=== PATIENT | female | born 1985 | race African-American/Black ===

== ENCOUNTER 2024-12-24 03:48 | Observation (INO) | payer BC, SELFPAY ==
[2024-12-24] VITALS (13 sets, daily range): BP systolic 97–122; BP diastolic 56–82; PULSE 65–105; RESP 10–21; TEMP 36–36.6; O2SAT 95–100; BMI 22.0
--- NOTE | ~2024-12-24 | CT_ITS ---
CT HEAD NON-CONTRAST Clinical History: seizure Comparison: None Technique: Unenhanced axial images skull base to vertex Coronal, sagittal reformats CT images acquired with automatic exposure control for dose reduction DLP: 832 mGy-cm Findings: Motion artifact could obscure abnormality. Sulci, ventricles: Unremarkable. No intracerebral hemorrhage. No evidence acute territorial infarct. No mass effect, midline shift. Bony calvarium intact. Visualized paranasal sinuses: Clear. Mastoid air cells: Clear. IMPRESSION: 1. No acute intracranial findings. Reviewed, dictated and finalized at location R. [employer]
--- NOTE | ~2024-12-24 | XR_ITS ---
Examination: XR chest 1V Clinical History: seizure Comparison: None Technique: Portable AP Findings: Heart size normal. Lungs clear. No acute bony abnormality. IMPRESSION: 1. No acute cardiopulmonary findings given portable technique. Reviewed, dictated and finalized at location R. AR WORKER
--- NOTE | ~2024-12-24 | MR_ITS ---
EXAMINATION: MR brain/brain stem wo/w con DATE: 12/24/2024 16:24 INDICATION: New onset seizure. TECHNIQUE: Magnetic resonance imaging (MRI) of the brain and brainstem was performed without and with 10 mL MultiHance intravenous contrast. COMPARISON: Head CT 12/24/2024 FINDINGS: The cerebellar tonsils extend 7 mm inferior to foramen magnum, consistent with Chiari 1 malformation. The hippocampi are normal and symmetric. There is no intracranial hemorrhage, acute infarction, or abnormal intracranial mass lesion. The ventricles are normal in size. The orbits are normal. There is mild mucosal thickening in the paranasal sinuses. The mastoid air cells are normal. IMPRESSION: 1. Chiari 1 malformation. Reviewed, dictated and finalized at location E. ING UNIT MECHANIC IMPRESSION: 1. Chiari 1 malformation.
--- NOTE | 2024-12-24 03:57 | ECG_ITS ---
Test Date: 2024-12-24 04:03:39 Measurements Intervals [place] Rate: 104 P: -17 MS: 126 QRS: 2 QRSD: 74 T: 8 QT: 344 QTc: 454 Interpretive Statements SINUS TACHYCARDIA Electronically Signed On 12-24-2024 09:59:56 TELEPHONE MECHANIC by Vamsi Bashir D.O
[2024-12-24 04:51] LABS: Hematocrit 37.5 % (37.0-47.0); Hemoglobin 12.6 g/dL (12.0-15.0); Immature Granulocyte Percent A 0.5 % (0-0.5); Lymphocytes Absolute Auto 1.96 K/mm3 (0.9-3.2); Mean Corpuscular HGB Conc 33.6 g/dl (32-36); Mean Corpuscular Hemoglobin 29.4 pg (26-34); Mean Corpuscular Volume 87.6 fl (80-100); Nucleated Red Blood Cells Absolute Auto 0.000 K/mm3 (0.0-0.012); Nucleated Red Blood Cells Perc 0.0 % (0.0-0.2); Platelet Count Result 204 k/mm3 (150-375); Red Blood Count 4.28 M/mm3 (4.2-5.4); White Blood Count 6.2 K/mm3 (4.5-10.0)
[2024-12-24 05:06] LABS: Alanine Aminotransferase 26 U/L (6-35); Albumin Level 4.2 g/dL (3.5-5.1); Alkaline Phosphatase 65 U/L (38-126); Anion Gap 8 mmol/L (4-12); Aspartate Amino Transferase 34 U/L (14-36); Bilirubin,Total 0.4 mg/dL (0.2-1.3); Blood Urea Nitrogen 18 mg/dL (7-17); Calcium 9.2 mg/dL (8.4-10.2); Carbon Dioxide 23 mmol/L (22-30); Chloride 105 mmol/L (98-107); Estimated CRCL calculation 77 ml/min; Estimated Glomerular Filt Rate > 60; Glucose 96 mg/dL (65-110); Lipase 76 U/L (23-300); Magnesium 2.1 mg/dL (1.6-2.3); Potassium 3.9 mmol/L (3.4-5.0); Sodium 136 mmol/L (137-145); Total Protein 7.3 g/dL (6.3-8.2)
--- NOTE | 2024-12-24 05:08 | PC.NURSE ---
Pt states she is unable to provide urine sample at this time.
[2024-12-24 05:36] LABS: Thyroid Stimulating Hormone Reflex 1.260 uIU/mL (0.465-4.68)
--- NOTE | 2024-12-24 06:06 | ED.GENADULT ---
HPI - General Adult General Chief complaint: Seizure Stated complaint: FALL IN BATHROOM, SZ- LIKE ACTIVITY Time Seen by Provider: 12/24/24 03:54 History of Present Illness HPI narrative: This is a 39-year-old female presenting for a first-time seizure. Patient says she had several drinks done [place] last night. She then got up to use the restroom. She does not remember anything after that except showing up in the emergency room. Per her boyfriend she got up to use the restroom to vomit. He then heard a thud and when he went in there she was having a generalized tonic clonic seizure and foaming at the mouth. The last approximately 35 seconds before resolving. She was then postictal. EMS was called and she was brought to the hospital. The patient's only complaint is pain to her tongue where she bit herself. No incontinence. She denies use of frequent alcohol and does not typically drink. She does use marijuana frequently. No other symptoms. Exam Narrative: APPEARANCE: No apparent distress. Head: tongue biting EYES: EOMI, NOSE: Atraumatic NECK: Trachea midline RESPIRATORY: No increased rate of breathing Clear to auscultation CARDIOVASCULAR: RRR, no peripheral edema ABDOMINAL: Non-distended soft nontender MUSCULOSKELETAl: No obvious deformities NEURO: Alert. Cranial nerves 2-12 grossly intact. Sensation light touch, motor function cerebellar function intact for 4 extremities. Gait exam was normal. SKIN:: Warm, dry. Normal color PSYCHIATRIC: Normal affect Course Vital Signs Vital signs: Vital Signs Temperature 98 F 12/24/24 03:49 Pulse Rate 105 H 12/24/24 03:49 Respiratory Rate 21 H 12/24/24 03:49 Blood Pressure 122/73 12/24/24 03:49 Pulse Oximetry 100 12/24/24 03:49 Oxygen Delivery Room Air 12/24/24 03:49 Temperature 98 F 12/24/24 03:49 Pulse Rate 70 12/24/24 05:09 Respiratory Rate 19 12/24/24 05:09 Blood Pressure 119/70 12/24/24 05:09 Pulse Oximetry 100 12/24/24 05:09 Oxygen Delivery Room Air 12/24/24 04:01 Medical Decision Making MDM Narrative Medical decision making narrative: -Course: 39-year-old female presenting with a first-time seizure. Physical exam shows bites to both sides of her tongue. Neurologic exam is normal. Laboratory studies within normal limits. CT brain without any acute findings. Neurology was consulted. Patient be admitted hospital for first-time seizure. UA and UDS were pending at time of admission and will be followed by the accepting service. Vital Signs Vital Signs: Vital Signs Temperature 98 F 12/24/24 03:49 Pulse Rate 105 H 12/24/24 03:49 Respiratory Rate 21 H 12/24/24 03:49 Blood Pressure 122/73 12/24/24 03:49 Pulse Oximetry 100 12/24/24 03:49 Oxygen Delivery Room Air 12/24/24 03:49 Temperature 98 F 12/24/24 03:49 Pulse Rate 70 12/24/24 05:09 Respiratory Rate 19 12/24/24 05:09 Blood Pressure 119/70 12/24/24 05:09 Pulse Oximetry 100 12/24/24 05:09 Oxygen Delivery Room Air 12/24/24 04:01 Lab Data 12/24/24 04:44 12/24/24 04:44 Labs: Lab Results 12/24/24 Range/Units 04:44 WBC 6.2 (4.5-10.0) K/mm3 RBC 4.28 (4.2-5.4) M/mm3 Hgb 12.6 (12.0-15.0) g/dL Hct 37.5 (37.0-47.0) % MCV 87.6 (80-100) fl MCH 29.4 (26-34) pg MCHC 33.6 (32-36) g/dl RDW 12.9 (11.5-14.5) % Plt Count 204 (150-375) k/mm3 MPV 9.6 (7.4-10.4) fl Immature Gran % (Auto) 0.5 (0-0.5) % Neut % (Auto) 58.9 (45.5-73.1) % Lymph % (Auto) 31.8 (18.3-44.2) % Reynolds % (Auto) 7.0 (2.6-8.5) % Eos % (Auto) 1.3 (0-4.4) % Baso % (Auto) 0.5 (0.2-1.2) % Lymph # (Auto) 1.96 (0.9-3.2) K/mm3 Reynolds # (Auto) 0.4 (0.1-0.6) K/mm3 Eos # (Auto) 0.1 (0-0.3) K/mm3 Baso # (Auto) 0.0 (0.0-0.1) K/mm3 Abs Immat Gran (auto) 0.03 (0.00-0.031) K/mm3 Absolute Neuts (auto) 3.6 (1.3-6.7) K/mm3 Absolute Nucleated RBC 0.000 (0.0-0.012) K/mm3 Nucleated RBC % 0.0 (0.0-0.2) % Sodium 136 L (137-145) mmol/L Potassium 3.9 (3.4-5.0) mmol/L Chloride 105 (98-107) mmol/L Carbon Dioxide 23 (22-30) mmol/L Anion Gap 8 (4-12) mmol/L BUN 18 H (7-17) mg/dL Creatinine 0.73 (0.7-1.0) mg/dL Estim Creat Clear Calc 77 ml/min Estimated GFR > 60 (59 - ) Glucose 96 (65-110) mg/dL Lactic Acid 2.0 (0.7-2.0) mmol/L Calcium 9.2 (8.4-10.2) mg/dL Magnesium 2.1 (1.6-2.3) mg/dL Total Bilirubin 0.4 (0.2-1.3) mg/dL AST 34 (14-36) U/L ALT 26 (6-35) U/L Alkaline Phosphatase 65 (38-126) U/L Total Protein 7.3 (6.3-8.2) g/dL Albumin 4.2 (3.5-5.1) g/dL Lipase 76 (23-300) U/L TSH (Reflex) 1.260 (0.465-4.68) uIU/mL Ethyl Alcohol < 10 (<10) mg/dL Discharge Plan Discharge Clinical Impression: Seizure Patient Disposition: Still a Patient Condition: Stable Patient Language: Tanzanian Follow-up/Referrals: Alexey Moore MD [Primary Care Provider, [facility]]
[2024-12-24] MEDS: levETIRAcetam 1500MG/NACL100ML 1,500 MG/100 ML BAG 400 MG IVPB (06:30)
[2024-12-24 06:51] LABS: Add Urine Microscopic? YES; Appearance Urine Cloudy (Clear); Glucose Urine UA Negative (Negative); Leukocyte Esterase Ur Trace LEU/UL (Negative); Nitrate Urine Negative (Negative); Non Pathogenic Casts 0-2; Specific Grav Ur 1.026 (1.001-1.035)
[2024-12-24] MEDS: LACTATED RINGERS 1,000 ML 125 ML IV CONT ×2 (06:54→15:07)
[2024-12-24 07:06] LABS: Cannabinoid Screen Urine Positive (Negative)
--- NOTE | 2024-12-24 07:15 | PC.NURSE ---
Assumed care of pt. Pt c/o jaw pain and slight headache. Updated on admission.
--- NOTE | 2024-12-24 10:58 | P.HP_ITS ---
H&P: HPI History of Present Illness Date/Time: 12/24/24 10:58 Chief Complaint: seizure Narrative: Patient is a 39 year old female with PMH of tobacco abuse. Patient presented to the ER with complaints of a witnessed seizure. Patient had a few drinks of alcohol yesterday evening and reports she got up to go to the bathroom because she felt she had to vomit and then she doesn't remember anything again until she was in the emergency room. Per the patient's boyfriend she got up to use the restroom and he then heard a loud thud and went to her and she was having a generalized tonic clonic seizure and foaming at the mouth. He reported that it lasted approximately 35 seconds before resolving and was then postictal. Patient bit her tongue during the seizure. Patient has bite holman present on both sides of the tongue. Patient did not lose bowel or bladder function. Patient reports she does not drink alcohol regularly and only has a few drinks once in awhile. Patient reports she uses tobacco and marijuana regularly, denies any other illicit substances. In the ER the patients labs were unremarkable and alcohol was <10. CT head was negative for acute findings. UDS positive for cannabinoids. Patient was given 1500 mg IV keppra. Neurology was consulted. Patient was admitted for further evaluation and treatment. Review of Systems Review of Systems: All systems reviewed & are unremarkable except as noted in HPI and below PMFSH Social History Social History Smoking status: Current every day smoker Tobacco type: e-cigarettes/vaping Alcohol intake: never Substance use: current Substance use type: marijuana Lack of Transportation: No Lack of Food: Sometimes True Current Housing: I Have Housing Concerned About Future Housing: No Difficulty Paying Gas/Electric Bills: No Difficulty Paying for Meds: No Currently Unemployed: No Education: High School Diploma/GED Difficulty w/ Childcare or Family Care: No Spiritual care concerns: No Meds Home Medications and Allergies Home Medications ?Medication ?Instructions ?Recorded ?Confirmed ?Type No Home Medications 12/24/24 12/24/24 H istory Allergies Allergy/AdvReac Type Severity Reaction Status Date / Time No Known Allergies Allergy Verified 12/24/24 11:25 Vital Signs Vital Signs - 24 hr 12/24/24 03:49 12/24/24 04:01 12/24/24 05:09 Temperature 98 F Pulse Rate 105 H 70 Respiratory Rate 21 H 19 Blood Pressure 122/73 119/70 Pulse Oximetry 100 100 100 Oxygen Delivery Room Air Room Air 12/24/24 06:31 12/24/24 07:39 12/24/24 10:28 Temperature Pulse Rate 81 65 65 Respiratory Rate 10 L 20 18 Blood Pressure 116/82 104/58 L Pulse Oximetry 100 100 100 Oxygen Delivery Exam Const: General: comfortable and no acute distress HENMT: Face/Nose/Sinus: Normal nares present Mouth: Yes moist mucous membranes Other: bite holman to both sides of tongue Eyes: General: appearance normal, both eyes and all related structures Sclera: sclerae normal Neck: Neck: supple Resp: Effort & Inspection: normal respiratory effort Auscultation: clear to auscultation bilaterally Cardio: Rate: regular rate Rhythm: regular rhythm GI: GI Palp: Yes Soft to palpation Auscultation: normal bowel sounds Skin: General skin exam: normal color and no rashes or lesions noted Neuro: General: gait normal Speech: normal speech Motor exam (neuro): 5/5 motor strength present throughout Sensory Exam: normal sensation Extrem: General: normal to inspection Psych: Mental Status: mental status grossly normal Affect: normal affect H&P: Results Labs Labs: Short CBC 12/24/24 Range/Units 04:44 WBC 6.2 (4.5-10.0) K/mm3 Hgb 12.6 (12.0-15.0) g/dL Hct 37.5 (37.0-47.0) % Plt Count 204 (150-375) k/mm3 [facility] 12/24/24 04:44 Sodium 136 L Potassium 3.9 Chloride 105 Carbon Dioxide 23 BUN 18 H Creatinine 0.73 Glucose 96 Calcium 9.2 Liver Function 12/24/24 Range/Units 04:44 Total Bilirubin 0.4 (0.2-1.3) mg/dL AST 34 (14-36) U/L ALT 26 (6-35) U/L Alkaline Phosphatase 65 (38-126) U/L Albumin 4.2 (3.5-5.1) g/dL Urine 12/24/24 Range/Units 06:30 Urine Color Yellow (Yellow) Urine Appearance Cloudy H (Clear) Urine pH 5.5 (5.0-9.0) Ur Specific [place] 1.026 (1.001-1.035) Urine Protein Trace (Negative) mg/dL Urine Glucose (UA) Negative (Negative) mg/dL Imaging Chest x-ray: Radiologist's impression: Ordering Physician: Anhtony Plunkett MD Date of Service: 12/24/24 Procedure(s): XR chest 1V Accession Number(s): [id number] cc: Alexey Moore MD; Anthony Plunkett MD~ Examination: XR chest 1V Clinical History: seizure Comparison: None Technique: Portable AP Findings: Heart size normal. Lungs clear. No acute bony abnormality. IMPRESSION: 1. No acute cardiopulmonary findings given portable technique. Reviewed, dictated and finalized at location R. CEMENTER CT scan - head: Radiologist's impression: Ordering Physician: Anthony Plunkett MD Date of Service: 12/24/24 Procedure(s): CT brain wo con Accession Number(s): [id number] cc: Alexey Moore MD; Anthony Plunkett MD~ CT HEAD NON-CONTRAST Clinical History: seizure Comparison: None Technique: Unenhanced axial images skull base to vertex Coronal, sagittal reformats CT images acquired with automatic exposure control for dose reduction DLP: 832 mGy-cm Findings: Motion artifact could obscure abnormality. Sulci, ventricles: Unremarkable. No intracerebral hemorrhage. No evidence acute territorial infarct. No mass effect, midline shift. Bony calvarium intact. Visualized paranasal sinuses: Clear. Mastoid air cells: Clear. IMPRESSION: 1. No acute intracranial findings. Reviewed, dictated and finalized at location R. CEMENTER Assessment and Plan Assessment and plan (1) Seizure: Code(s): R56.9 - Unspecified convulsions Status: Acute Assessment and Plan: per family patient had a witnessed generalized tonic clonic seizure with foaming at the mouth followed by a postictal period the patient does not remembers getting into the bathroom and then being in the ER per family the seizure lasted approximately 35 seconds patient bit both sides of her tongue, no bladder incontinence patient does report that a few weeks ago she woke up in the morning and found that her tongue was very sore and she must have bit it in her sleep, she said she did not seek any medical attention UDS positive for cannabinoids alcohol level <10 other labs unremarkable s/p IV Keppra 1500 mg in the ER s/p head CT without acute findings Neurology consulted Seizure precautions check EEG check brain MRI w&wo (2) Injury of tongue: Code(s): S09.93XA - Unspecified injury of face, initial encounter Status: Acute Assessment and Plan: patient bit her tongue on both sides during seizure patient with difficulty eating due to pain add magic mouthwash scheduled tylenol PRN Quality VTE Prophylaxis VTE prophylaxis: mechanical ordered
--- NOTE | 2024-12-24 11:10 | PC.NURSE ---
This patient, Ivania Lyons, was admitted to [facility] Surg Room 328-01. Patient/family oriented to hospital policies and general routines including ID bracelet, bed and alarms, visiting hours, pain management, procedures, bathroom and other care routines, personal items, smoking policy, room service/diet, and visiting hours. Information on how to activate the Rapid Response Team has been discussed. Patient/Family are encouraged to report perceived risks to care and to ask questions if they do not understand what they are told or what they should do.
[2024-12-24] MEDS: ACETAMINOPHEN 500 MG TABLET 1000 MG PO ×2 (11:38→20:10)
[2024-12-24] MEDS: LIDOCAINE 2% VISC SOLN 30 ML, ALUMINUM/MAGNESIUM/SIMETH SUSP 30 ML, diphenhydrAMINE HCl... PO ×3 (12:40→20:17)
--- NOTE | 2024-12-24 14:30 | PCRCNOTE ---
smoking cessation packet given to patient.
[2024-12-24] MEDS: LORazepam (*CRX) 1 MG TABLET PO (15:17)
[2024-12-25] VITALS (8 sets, daily range): BP systolic 94–119; BP diastolic 51–71; PULSE 61–76; RESP 16–18; TEMP 36.1–36.6; O2SAT 90–100; BMI 22.0
[2024-12-25] MEDS: LACTATED RINGERS 1,000 ML 125 ML IV CONT ×2 (01:25→09:09)
[2024-12-25] MEDS: LIDOCAINE 2% VISC SOLN 30 ML, ALUMINUM/MAGNESIUM/SIMETH SUSP 30 ML, diphenhydrAMINE HCl... PO ×3 (04:36→13:37)
[2024-12-25 05:52] LABS: Hematocrit 33.3 % (37.0-47.0); Hemoglobin 10.9 g/dL (12.0-15.0); Immature Granulocyte Percent A 0.3 % (0-0.5); Lymphocytes Absolute Auto 2.52 K/mm3 (0.9-3.2); Mean Corpuscular HGB Conc 32.7 g/dl (32-36); Mean Corpuscular Hemoglobin 29.1 pg (26-34); Mean Corpuscular Volume 88.8 fl (80-100); Nucleated Red Blood Cells Absolute Auto 0.000 K/mm3 (0.0-0.012); Nucleated Red Blood Cells Perc 0.0 % (0.0-0.2); Platelet Count Result 184 k/mm3 (150-375); Red Blood Count 3.75 M/mm3 (4.2-5.4); White Blood Count 6.3 K/mm3 (4.5-10.0)
[2024-12-25 06:07] LABS: Alanine Aminotransferase 17 U/L (6-35); Albumin Level 3.2 g/dL (3.5-5.1); Alkaline Phosphatase 50 U/L (38-126); Anion Gap 4 mmol/L (4-12); Aspartate Amino Transferase 23 U/L (14-36); Bilirubin,Total 0.6 mg/dL (0.2-1.3); Blood Urea Nitrogen 8 mg/dL (7-17); Calcium 8.5 mg/dL (8.4-10.2); Carbon Dioxide 26 mmol/L (22-30); Chloride 105 mmol/L (98-107); Estimated CRCL calculation 76 ml/min; Estimated Glomerular Filt Rate > 60; Glucose 79 mg/dL (65-110); Potassium 3.3 mmol/L (3.4-5.0); Sodium 135 mmol/L (137-145); Total Protein 5.7 g/dL (6.3-8.2)
--- NOTE | 2024-12-25 12:27 | P.CONNEU_ITS ---
Assessment and Plan Assessment and plan (1) Seizure disorder: Code(s): G40.909 - Epilepsy, unspecified, not intractable, without status epilepticus Status: Acute Plan The patient had a spell 2 weeks ago in which she woke up with the tongue having been bitten. Not follow the bed. This current spell followed by aggressive behavior tongue biting suggestive of seizure episode. MRI of the brain shows an Arnold-Chiari malformation she does suffer from headache on a daily basis. She has been taking ibuprofen. There is a question regarding alcohol drinking with the patient maintains that she does not have any pattern of chronic alcoholism or binge drinking. Patient require follow-up from the point of view of seizures and I have given her my phone number. She should not drive for 6 months however she can work so long as somebody can drop her pick her up or she can use public transport. I shall be glad to see her in my office in 2 months time. Consult date: 12/25/24 HPI: Ivania Lyons is a 39 year old right-handed Afro-Israeli female presented to the hospital seizure-like activity. Patient apparently has a drink and she vomited and then went to bathroom and then she collapsed. Her boyfriend was around. Above heard a loud 3rd and patient having a generalized tonic-clonic seizure and foaming from the mouth she bit her tongue on the right side. Spell lasted for 35 seconds or so. She was postictal and combative and fighting. She does not recall happened in the ambulance but she does note she was brought into the hospital by ambulance. By the time she got to room she was coming around to understand next better. CT scan brain was performed which was normal. Alcohol level was less than 10. She states that she may sometimes drink but she does not drink heavily. furthermore she gives a history that she has had this spell about 2 weeks ago in which she woke up in the morning with the tongue being bitten on the right side. There is no prior history of head trauma or any recent febrile illness. She denies any history of drug abuse. Her mother had stroke. Patient also complains of headache on a daily basis but she attributes this to her current job that she had for Last 4 years or so. 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 Currently she denies any symptoms as feeling well. She has been loaded with Keppra and now is on Keppra 750 mg twice a day. Review of Systems 2 Review of Systems: All systems reviewed & are unremarkable except as noted in HPI and below PMFSH Past Medical History Medical History (Updated 12/25/24 @ 12:32 by Lucian Fuentes MD) Seizure disorder Social History Social History Smoking status: Current every day smoker Tobacco type: e-cigarettes/vaping Alcohol intake: never Substance use: current Substance use type: marijuana Lack of Transportation: No Lack of Food: Sometimes True Current Housing: I Have Housing Concerned About Future Housing: No Difficulty Paying Gas/Electric Bills: No Difficulty Paying for Meds: No Currently Unemployed: No Education: High School Diploma/GED Difficulty w/ Childcare or Family Care: No Spiritual care concerns: No Meds Home Medications and Allergies Home Medications ?Medication ?Instructions ?Recorded ?Confirmed ?Type No Home Medications 12/24/24 12/24/24 H istory Allergies Allergy/AdvReac Type Severity Reaction Status Date / Time No Known Allergies Allergy Verified 12/24/24 11:25 Vital Signs Vital Signs - 24 hr 12/24/24 14:00 12/24/24 17:23 12/24/24 18:20 Temperature 96.8 F L 97.5 F L Pulse Rate 75 80 76 Respiratory Rate 16 15 Blood Pressure 110/63 109/56 L Pulse Oximetry 99 100 Oxygen Delivery 12/24/24 20:00 12/24/24 20:00 12/24/24 21:26 Temperature 97.0 F L Pulse Rate 72 82 Respiratory Rate 14 Blood Pressure 100/56 L Pulse Oximetry 95 Oxygen Delivery Room Air 12/25/24 00:00 12/25/24 00:33 12/25/24 04:00 Temperature 97.0 F L Pulse Rate 61 71 61 Respiratory Rate 18 Blood Pressure 96/58 L Pulse Oximetry 90 Oxygen Delivery 12/25/24 04:45 12/25/24 08:00 12/25/24 11:54 Temperature 97.3 F L 97.6 F 97.7 F Pulse Rate 63 64 76 Respiratory Rate 18 18 16 Blood Pressure 95/54 L 94/51 L 110/71 Pulse Oximetry 96 100 97 Oxygen Delivery Exam 2 Const: General: cooperative, healthy appearing and comfortable HENMT: Head: atraumatic Other: Right side of the tongue has been bitten. No active bleeding or trauma around the head and neck noted Eyes: Alignment and Position: alignment normal and position normal EOM: E OMs intact bilaterally Neck: Neck: normal visual inspection and supple Resp: Effort & Inspection: normal respiratory effort Cardio: Heart sounds: S1 normal heart sound present and S2 normal heart sound present Skin: General skin exam: normal color Neuro: Cranial nerves: Yes CN's II-XII intact bilaterally, Yes facial symmetry and Yes Midline tongue present Cognition (Neuro): normal cognition Speech: normal speech Motor exam (neuro): 5/5 motor strength present throughout and Normal motor muscle tone present throughout Sensory Exam: normal sensation Coordination: [id number] test normal and Normal rapid alternating movements of the distal upper extremity present (Neuro) Extrem: General: normal to inspection Psych: Appearance: well kempt Mental Status: mental status grossly normal Speech and movement: Normal speech and movement present Affect: normal affect Thought process: Normal thought process present Thought content: Y es Normal thought content present Insight: Good insight present (Psych) J udgement: Good judgement present (Psych) Results Labs 12/25/24 05:32 12/25/24 05:32 Labs: Short CBC 12/25/24 Range/Units 05:32 WBC 6.3 (4.5-10.0) K/mm3 Hgb 10.9 L (12.0-15.0) g/dL Hct 33.3 L (37.0-47.0) % Plt Count 184 (150-375) k/mm3 BMP 12/25/24 05:32 Sodium 135 L Potassium 3.3 L Chloride 105 Carbon Dioxide 26 BUN 8 D Creatinine 0.74 Glucose 79 Calcium 8.5 Liver Function 12/25/24 Range/Units 05:32 Total Bilirubin 0.6 (0.2-1.3) mg/dL AST 23 (14-36) U/L ALT 17 (6-35) U/L Alkaline Phosphatase 50 (38-126) U/L Albumin 3.2 L (3.5-5.1) g/dL Imaging Attestation: I personally reviewed and interpreted this imaging study as follows: ( MRI of the brain) My impression: normal findings. Radiologist's impression: Arnold-Chiari malformation type 1
[2024-12-25] MEDS: POTASSIUM CHLORIDE 20 MEQ ER TABLET 40 MEQ PO (13:36)
--- NOTE | 2024-12-25 14:45 | PM.DS ---
DS: Admitting Diagnosis Discharge Date 12/25/2024 Admitting Diagnosis Seizure Injury of tongue DS: Discharge Diagnosis Discharge Diagnosis (1) Seizure: Code(s): R56.9 - Unspecified convulsions Status: Acute Assessment and Plan: per family patient had a witnessed generalized tonic clonic seizure with foaming at the mouth followed by a postictal period the patient does not remembers getting into the bathroom and then being in the ER per family the seizure lasted approximately 35 seconds patient bit both sides of her tongue, no bladder incontinence patient does report that a few weeks ago she woke up in the morning and found that her tongue was very sore and she must have bit it in her sleep, she said she did not seek any medical attention UDS positive for cannabinoids alcohol level <10 other labs unremarkable s/p IV Keppra 1500 mg in the ER s/p head CT without acute findings Neurology consulted Seizure precautions check EE, ordered, patient can be discharged after it is completed and will follow up with neuro after discharge for the results brain MRI w&wo - Chiari 1 Malformation increase keppra to 750 mg BID per neurology recommendations patient instructed no driving for 6 months patient will need to follow up with neurology after discharge for EEG results medication refills and management of her seizures (2) Injury of tongue: Code(s): S09.93XA - Unspecified injury of face, initial encounter Status: Acute Assessment and Plan: patient bit her tongue on both sides during seizure patient with difficulty eating due to pain magic mouthwash scheduled tylenol PRN slowly improving DS: Summary Hospital Course Reason for hospitalization: seizure Hospital Course: The patient is a 39-year-old female with a history of tobacco and marijuana use who presented after a witnessed generalized tonic-clonic seizure at home. The event was described by her boyfriend as lasting approximately 35 seconds, with tongue biting and a postictal period. There was no loss of bowel or bladder control. The patient had consumed a few alcoholic drinks the evening prior but does not report regular alcohol use. She also reported a similar episode two weeks prior, waking with tongue soreness but no witnessed seizure. On arrival, she was postictal but hemodynamically stable. She had bite holman on both sides of her tongue. Initial labs, including CBC, BMP, LFTs, and toxicology, were unremarkable except for mild hyponatremia, mild hypokalemia, and a positive urine cannabinoid screen. Alcohol level was <10. Imaging included a non-contrast head CT (no acute findings) and a chest x-ray (no acute cardiopulmonary findings). She was loaded with IV levetiracetam (Keppra) 1500 mg in the ED and admitted for further evaluation. Neurology was consulted. 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 EEG was ordered. The patient was started on levetiracetam 750 mg BID per neurology recommendations. She was counseled on seizure precautions, including no driving for 6 months. She was also advised to follow up with neurology for EEG results, medication management, and further evaluation of her seizures. For tongue injury, she was started on magic mouthwash and acetaminophen as needed for pain, with gradual improvement in oral intake. Time Spent with Patient Time attestation: Total time spent providing and/or coordinating discharge services: 35 Minutes Exam Const: General: comfortable and no acute distress HENMT: Face/Nose/Sinus: Normal nares present Mouth: Yes moist mucous membranes Other: bite holman to both sides of tongue Eyes: General: appearance normal, both eyes and all related structures Sclera: sclerae normal Neck: Neck: supple Resp: Effort & Inspection: normal respiratory effort Auscultation: clear to auscultation bilaterally Cardio: Rate: regular rate Rhythm: regular rhythm GI: Auscultation: normal bowel sounds Skin: General skin exam: normal color and no rashes or lesions noted Neuro: General: gait normal Speech: normal speech Motor exam (neuro): 5/5 motor strength present throughout Sensory Exam: normal sensation Extrem: General: normal to inspection Psych: Mental Status: mental status grossly normal Affect: normal affect DS: Data Data Completed and Pending Labs on day of discharge: Labs from last 24 hours 12/25/24 05:32 WBC 6.3 RBC 3.75 L Hgb 10.9 L Hct 33.3 L MCV 88.8 MCH 29.1 MCHC 32.7 RDW 12.9 Plt Count 184 MPV 9.9 Immature Gran % (Auto) 0.3 Neut % (Auto) 52.3 Lymph % (Auto) 40.1 [place] % (Auto) 6.0 Eos % (Auto) 1.0 Baso % (Auto) 0.3 Lymph # (Auto) 2.52 [place] # (Auto) 0.4 Eos # (Auto) 0.1 Baso # (Auto) 0.0 Abs Immat Gran (auto) 0.02 Absolute Neuts (auto) 3.3 Absolute Nucleated RBC 0.000 Nucleated RBC % 0.0 Sodium 135 L Potassium 3.3 L Chloride 105 Carbon Dioxide 26 Anion Gap 4 BUN 8 D Creatinine 0.74 Estim Creat Clear Calc 76 Estimated GFR > 60 Glucose 79 Calcium 8.5 Total Bilirubin 0.6 AST 23 ALT 17 Alkaline Phosphatase 50 Total Protein 5.7 L Albumin 3.2 L Imaging Radiologist's impression: Ordering Physician: Anthony Plunkett MD Date of Service: 12/24/24 Procedure(s): CT brain wo con Accession Number(s): [id number] cc: Alexey Moore MD; Anthony Plunkett MD~ CT HEAD NON-CONTRAST Clinical History: seizure Comparison: None Technique: Unenhanced axial images skull base to vertex Coronal, sagittal reformats CT images acquired with automatic exposure control for dose reduction DLP: 832 mGy-cm Findings: Motion artifact could obscure abnormality. Sulci, ventricles: Unremarkable. No intracerebral hemorrhage. No evidence acute territorial infarct. No mass effect, midline shift. Bony calvarium intact. Visualized paranasal sinuses: Clear. Mastoid air cells: Clear. IMPRESSION: 1. No acute intracranial findings. Reviewed, dictated and finalized at location [facility]. [facility] [employer]ING CHECK[employer] Ordering Physician: Lisa Navarro APRN Date of Service: 12/24/24 Procedure(s): MR brain/brain stem wo/w con Accession Number(s): [id number] cc: Yessica Velazco MD; Alexey Moore MD; Lisa Navarro APRN~ EXAMINATION: MR brain/brain stem wo/w con DATE: 12/24/2024 16:24 INDICATION: New onset seizure. TECHNIQUE: Magnetic resonance imaging (MRI) of the brain and brainstem was performed without and with 10 mL MultiHance intravenous contrast. COMPARISON: Head CT 12/24/2024 FINDINGS: The cerebellar tonsils extend 7 mm inferior to foramen magnum, consistent with Chiari 1 malformation. The hippocampi are normal and symmetric. There is no intracranial hemorrhage, acute infarction, or abnormal intracranial mass lesion. The ventricles are normal in size. The orbits are normal. There is mild mucosal thickening in the paranasal sinuses. The mastoid air cells are normal. IMPRESSION: 1. Chiari 1 malformation. Reviewed, dictated and finalized at location [facility]. K [employer] CHECK[employer] Discharge Plan Discharge Attending physician on discharge: Rubina Yepez Consulting providers: Luis Schroeder Discharging Clinician: Lisa Navarro Patient Disposition: Home Activity: no driving and as tolerated Diet: as tolerated Discharge Instructions: No driving for 6 months after last known seizure. Please have your PCP or neurology refill your seizure medication before it runs out. Do not miss doses of your seizure medication. Patient Instructions: Antibiotic Form, How to Stop Smoking (DC), New-Onset Seizure in Adults (DC) Patient Language: [place] Stand Alone Forms: General Discharge Information Follow-up/Referrals: Luis Schroeder MD [Physician, Neurology] Referral Note: call for an appt to see Dr. Schroeder or Dr. Wagner for a follow up to get medication refills and the results for your EEG which was done before discharge. Alexey Moore MD [Primary Care Provider, Family Practice] Referral Note: call for an appt to be seen within 1-2 weeks of discharge Discharge Medications: New levetiracetam 750 mg tablet 750 mg PO BID Qty: 60 0RF Date of admission: 12/24/24 06:12 Primary Care Provider: Alexey Moore Admitting Provider: Yessica Velazco Attending physician on admission: Yessica Velazco Condition: Stable Quality VTE Prophylaxis VTE prophylaxis: mechanical ordered
--- NOTE | 2024-12-26 09:05 | WPDNEUROLOGY ---
Neurology EEG Report General Information Date of Study: 12/25/24 TEST EEG DIAGNOSIS Witnessed seizure CONDITION OF RECORDING awake, drowsy and asleep. EEG NUMBER [id number] CLINICAL HISTORY Patient at home took a shot of hard alcohol. She stated that she then coughed and threw up which made her get up and run to the bathroom. That is the last thing she remembers. Her boyfriend heard a 3rd found the patient on the ground convulsing. He stated she had her hands clenched and her arms were in front of her tight. Patient states when she remembers coming to, he started screaming, crying, and she did not know where she was. She had bitten her tongue and lost control of her bladder. Patient stated that she was exhausted and like all the energy was drained from her body. She also had woken up from her sleep with the tongue bit prior to the episode, thought it was from the vivid dream she has been having. EEG DESCRIPTION Basic resting occipital frequency consists of low voltage 8 to 10 hertz per 2nd alpha admixed with low-voltage 15 to 18 hertz per 2nd beta activity. Hyperventilation produced normal and symmetrical buildup. And photic stimulation produced normal drive. Low-voltage beta activity seen diffusely admixed with waxing and waning intermittent low-voltage to medium voltage theta activity. Bilateral sleep activity noted with symmetrical sleep spindles. Multiple EKG artifacts also noted intermittently. Hyperventilation produced normal and symmetrical buildup. Photic stimulation produced normal drive. Non paroxysmal. Nonfocal. Non lateralizing. IMPRESSION Normal record, an EEG can be normal in the setting of the history of seizure. clinical correlation recommended.
--- NOTE | 2024-12-27 10:02 | PC.NURSE ---
During follow up discharge phone call the patient asked if it is normal for Roxana to make her drowsy and dizzy. I advised her to call her PCP with any medication questions.
== END 2024-12-25 15:45 | disposition home or self-care (01) ==
LOC: ANHED 07:28 → ANH3MEDSUR 10:33
PROVIDERS: Admitting Provider General Practice; Emergency Provider Emergency Medicine; PCP Emergency Medicine; Visit Provider Nurse Practitioner Adult Health
DX: R56.9 Unspecified convulsions (principal); S00.572A Other superficial bite of oral cavity, initial encounter; G93.5 Compression of brain; F17.290 Nicotine dependence, other tobacco product, uncomplicated; F12.90 Cannabis use, unspecified, uncomplicated
CPT/HCPCS: 36415; 70450; 70553; 71045; 80053; 80307; 81001; 82077; 83605; 83690; 83735; 84443; 85025; 93005; 95816; 96361; 96365; 99285; A9270; A9577; G0378; J1953; J7120

== ENCOUNTER 2025-02-04 09:15 | Emergency (ER) | payer BC, SELFPAY ==
--- NOTE | ~2025-02-04 | CT_ITS ---
CHEST ABDOMEN PELVIS WITH CONTRAST CLINICAL HISTORY: Ant/Post chest wall pain, RUQ pain . COMPARISON: Chest x-ray 12/24/2024 TECHNIQUE: Helical CT performed from thoracic inlet to symphysis pubis IV contrast information not listed in PACS Coronal, sagittal reformats. Multi planar MIPS CT images acquired with automatic exposure control for dose reduction DLP: 271 mGy-cm FINDINGS: CHEST- Lungs/Pleura: Clear. Thoracic Aorta: No dissection. No aneurysm. Pulmonary arteries: Normal caliber. No PE. Heart: Unremarkable. Tracheobronchial tree: Patent. Nodes: No enlarged nodes. Bones: No acute bony abnormality. Soft tissues: Unremarkable. ABDOMEN/PELVIS- Liver: Steatosis. Gallbladder: Unremarkable. Spleen: Unremarkable. Pancreas: Unremarkable. Adrenal glands: Unremarkable. Kidneys: Right kidney- No hydronephrosis. No renal stones. Tiny cyst. Left kidney- No hydronephrosis. No renal stones. Tiny cyst. Distal esophagus/stomach: Apparent gastric antral wall thickening but under distended. Small bowel loops: Normal caliber and wall thickness. Colon: Normal caliber and wall thickness. Normal RLQ appendix. Nodes: No enlarged nodes. Peritoneum: No ascites. No free air. Urinary bladder: Unremarkable. Uterus: Unremarkable. Adnexa: No masses. Left corpus luteal cyst. Small pelvic free fluid. Bones: No acute bony abnormality. Soft tissues: Unremarkable. Aorta: No aneurysm or dissection. IVC: Unremarkable. Main portal vein/SMV/splenic vein: Patent. IMPRESSION: CHEST- 1. No acute findings. ABDOMEN/PELVIS- 1. No acute findings. Reviewed, dictated and finalized at location R. D BAR CLERK
[2025-02-04 09:26] VITALS: BP 103/78; PULSE 79; RESP 18; TEMP 36.4; O2SAT 100
[2025-02-04 09:42] LABS: Hematocrit 39.0 % (37.0-47.0); Hemoglobin 13.4 g/dL (12.0-15.0); Immature Granulocyte Percent A 0.1 % (0-0.5); Lymphocytes Absolute Auto 2.76 K/mm3 (0.9-3.2); Mean Corpuscular HGB Conc 34.4 g/dl (32-36); Mean Corpuscular Hemoglobin 29.3 pg (26-34); Mean Corpuscular Volume 85.3 fl (80-100); Nucleated Red Blood Cells Absolute Auto 0.000 K/mm3 (0.0-0.012); Nucleated Red Blood Cells Perc 0.0 % (0.0-0.2); Platelet Count Result 193 k/mm3 (150-375); Red Blood Count 4.57 M/mm3 (4.2-5.4); White Blood Count 7.2 K/mm3 (4.5-10.0)
[2025-02-04 10:09] LABS: Alanine Aminotransferase 25 U/L (6-35); Albumin Level 4.3 g/dL (3.5-5.1); Alkaline Phosphatase 66 U/L (38-126); Anion Gap 8 mmol/L (4-12); Aspartate Amino Transferase 35 U/L (14-36); Bilirubin,Total 0.3 mg/dL (0.2-1.3); Blood Urea Nitrogen 8 mg/dL (7-17); Calcium 9.7 mg/dL (8.4-10.2); Carbon Dioxide 19 mmol/L (22-30); Chloride 109 mmol/L (98-107); Estimated CRCL calculation 65 ml/min; Estimated Glomerular Filt Rate > 60; Glucose 93 mg/dL (65-110); Lipase 48 U/L (23-300); Potassium 4.4 mmol/L (3.4-5.0); Sodium 136 mmol/L (137-145); Total Protein 7.3 g/dL (6.3-8.2)
--- NOTE | 2025-02-04 10:24 | PC.NURSE ---
called to room by registration stating the family member states pt is having a seizure. Dr Damon and I went to room to find patient lying supine eyes closed. Dr Damon rubbed middle of chest and pt became awake right away. NO post-ictal state. Family member asked if he should do that when this situation happens again - Told him yes - patient stated that she is fine.
[2025-02-04] MEDS: KETOROLAC 30 MG/ML VIAL (*BKC) IV PUSH (10:42)
[2025-02-04] MEDS: HYDROmorphone HCL INJ (*CRX) 1 MG/ML SYR IV PUSH (10:44)
[2025-02-04] MEDS: SODIUM CHLORIDE 0.9% IV 1,000 ML 999 ML IV CONT (10:45)
[2025-02-04 10:50] VITALS: BP 114/63; PULSE 65; RESP 13; O2SAT 99
--- NOTE | 2025-02-04 10:55 | ED_ITS ---
HPI - General Adult General Chief complaint: Abdominal Pain Stated complaint: right upper abd pain Time Seen by Provider: 02/04/25 10:03 History of Present Illness HPI narrative: Patient is a 40-year-old female who presents ER with pain to her chest wall and upper abdomen. She was stretching at 3:00 a.m. and felt a pop towards her anterior chest wall. She has started having spasming moving into her upper abdomen. She cannot move without crying. No nausea or vomiting. No diarrhea. No urinary frequency urgency or dysuria. Not found nearly a factors other than lying still holding her upper abdomen. Related Data Allergies Allergy/AdvReac Type Severity Reaction Status Date / Time No Known Allergies Allergy Verified 02/04/25 09:28 Review of Systems 2 Review of Systems: All systems reviewed & are unremarkable except as noted in HPI and below Constitutional: Constitutional: Reports no additional constitutional complaints ENT: Reports system reviewed and no additional complaints, except as documented Cardiovascular: Cardiovascular: Reports no additional cardiovascular complaints Respiratory: Respiratory: Reports no additional respiratory complaints Gastrointestinal: Gastrointestinal: Reports no additional gastrointestinal complaints Musculoskeletal: Musculoskeletal: Reports no additional musculoskeletal complaints [facility] Past Medical History Medical History (Updated 02/04/25 @ 12:09 by Gigi Damon MD) Seizure disorder Social History Social History Smoking status: Current every day smoker Tobacco type: e-cigarettes/vaping Alcohol intake: never Substance use: current Substance use type: marijuana Lack of Transportation: No Lack of Food: Sometimes True Current Housing: I Have Housing Concerned About Future Housing: No Difficulty Paying Gas/Electric Bills: No Difficulty Paying for Meds: No Currently Unemployed: No Education: High School Diploma/GED Difficulty w/ Childcare or Family Care: No Spiritual care concerns: No Exam 2 Narrative: GENERAL: Tearful-appearing, well-nourished, and in mild distress. HEAD: Normocephalic, atraumatic. EYES: PERRL and EOMI. ENT: Mucous membranes moist. CHEST: Clear to auscultation. No respiratory distress. Patient guards and rides with palpation to the the lower anterior right chest wall as well as lateral chest wall and posterior chest wall. HEART: Regular rate and rhythm. Normal peripheral pulses. ABDOMEN: Soft, mild tenderness on upper quadrant with voluntary guarding, nondistended, normal active bowel sounds. EXTREMITIES: Normal range of motion. No edema. SKIN: Warm, dry, no rash. NEURO: Alert and oriented x3. Course Course Emergency Course: Pain improved with Dilaudid and Toradol. Hydrated. CT without any acute injury. Appropriate for discharge home. Vital Signs Vital signs: Vital Signs Temperature 97.5 F L 02/04/25 09:26 Pulse Rate 79 02/04/25 09:26 Respiratory Rate 18 02/04/25 09:26 Blood Pressure 103/78 02/04/25 09:26 Pulse Oximetry 100 02/04/25 09:26 Oxygen Delivery Room Air 02/04/25 09:26 Temperature 97.5 F L 02/04/25 09:26 Pulse Rate 69 02/04/25 11:47 Respiratory Rate 15 02/04/25 11:47 Blood Pressure 108/71 02/04/25 11:47 Pulse Oximetry 100 02/04/25 11:47 Oxygen Delivery Room Air 02/04/25 09:26 MDM Differential Diagnosis Differential Diagnosis: Muscle strain, rib fracture, perforated viscus, pneumonia, pleurisy Lab Data [facility] Lab Attestation statement: I personally reviewed the patient's lab results. 02/04/25 09:36 02/04/25 09:36 Labs: Lab Results 02/04/25 02/04/25 Range/Units 09:36 11:35 WBC 7.2 (4.5-10.0) K/mm3 RBC 4.57 (4.2-5.4) M/mm3 Hgb 13.4 (12.0-15.0) g/dL Hct 39.0 (37.0-47.0) % MCV 85.3 (80-100) fl MCH 29.3 (26-34) pg MCHC 34.4 (32-36) g/dl RDW 13.3 (11.5-14.5) % Plt Count 193 (150-375) k/mm3 MPV 9.6 (7.4-10.4) fl Immature Gran % (Auto) 0.1 (0-0.5) % Neut % (Auto) 51.0 (45.5-73.1) % Lymph % (Auto) 38.2 (18.3-44.2) % [place] % (Auto) 8.4 (2.6-8.5) % Eos % (Auto) 1.7 (0-4.4) % Baso % (Auto) 0.6 (0.2-1.2) % Lymph # (Auto) 2.76 (0.9-3.2) K/mm3 [place] # (Auto) 0.6 (0.1-0.6) K/mm3 Eos # (Auto) 0.1 (0-0.3) K/mm3 Baso # (Auto) 0.0 (0.0-0.1) K/mm3 Abs Immat Gran (auto) 0.01 (0.00-0.031) K/mm3 Absolute Neuts (auto) 3.7 (1.3-6.7) K/mm3 Absolute Nucleated RBC 0.000 (0.0-0.012) K/mm3 Nucleated RBC % 0.0 (0.0-0.2) % Sodium 136 L (137-145) mmol/L Potassium 4.4 (3.4-5.0) mmol/L Chloride 109 H (98-107) mmol/L Carbon Dioxide 19 L (22-30) mmol/L Anion Gap 8 (4-12) mmol/L BUN 8 (7-17) mg/dL Creatinine 0.83 (0.7-1.0) mg/dL Estim Creat Clear Calc 65 ml/min Estimated GFR > 60 (59 - ) Glucose 93 (65-110) mg/dL Calcium 9.7 (8.4-10.2) mg/dL Total Bilirubin 0.3 (0.2-1.3) mg/dL AST 35 (14-36) U/L ALT 25 (6-35) U/L Alkaline Phosphatase 66 (38-126) U/L Total Protein 7.3 (6.3-8.2) g/dL Albumin 4.3 (3.5-5.1) g/dL Lipase 48 (23-300) U/L Urine Color Yellow (Yellow) Urine Appearance Cloudy H (Clear) Urine pH 8.0 (5.0-9.0) Ur Specific [place] 1.043 H (1.001-1.035) Urine Protein Negative (Negative) mg/dL Urine Glucose (UA) Negative (Negative) mg/dL Urine Ketones Negative (Negative) mg/dL Ur Blood (Man) Negative (Negative) Urine Nitrate Negative (Negative) Urine Bilirubin Negative (Negative) Urine Urobilinogen 0.2 (<2.0) mg/dL Add Ur Microanalysis Reviewed Leukocyte Esterase Rfl 1+ H (Negative) ABHAY/UL Urine RBC 0-2 (0-2) /hpf Urine WBC 6-10 H (0-3) /hpf Ur Squamous Epith Cells Few (Few) /hpf Urine Bacteria Rare /hpf Urine Casts 0-2 Urine Test Negative Imaging Data Radiologist's impression: ITS Impressions Chest/Abdomen/Pelvis CT 02/04/25 11:33 IMPRESSION: CHEST- 1. No acute findings. ABDOMEN/PELVIS- 1. No acute findings. Discharge Plan Discharge Clinical Impression: Muscle spasm Patient Disposition: Home Condition: Stable Instructions: Muscle Spasm (ED) Additional Instructions: Please return to the emergency department if you develop severe and persistent chest pain, difficulty breathing, dizziness, leg swelling or if you are coughing up blood as these can be signs of a medical emergency. Please call your doctor for a follow up appointment to determine the need for further testing. Patient Language: Urdu Prescriptions: New cyclobenzaprine 10 mg tablet 10 mg PO TID PRN (Reason: muscle spasm) Qty: 20 0RF naproxen 375 mg tablet 375 mg PO BID Qty: 14 0RF No Action levetiracetam 750 mg tablet 750 mg PO BID Qty: 60 0RF Follow-up/Referrals: Alexey Moore MD [Primary Care Provider, Family Practice] - 1 Week Stand Alone Forms: Work/School Release IP
[2025-02-04 11:47] VITALS: BP 108/71; PULSE 69; RESP 15; O2SAT 100
[2025-02-04 11:54] LABS: Add Urine Microscopic? YES; Appearance Urine Cloudy (Clear); Glucose Urine UA Negative (Negative); Leukocyte Esterase Ur 1+ LEU/UL (Negative); Need Manual Microscopic Reviewed; Nitrate Urine Negative (Negative); Non Pathogenic Casts 0-2; Specific Grav Ur 1.043 (1.001-1.035)
[2025-02-04 11:58] LABS: Pregnancy On Board Control Positive
[2025-02-04 12:25] VITALS: BP 108/71; PULSE 65; RESP 17; TEMP 36.8; O2SAT 100
== END 2025-02-04 12:30 | disposition home or self-care (01) ==
PROVIDERS: Emergency Medicine; Emergency Provider Emergency Medicine; PCP Emergency Medicine
DX: M62.838 Other muscle spasm (principal); F17.290 Nicotine dependence, other tobacco product, uncomplicated; F12.90 Cannabis use, unspecified, uncomplicated
CPT/HCPCS: 36415; 71260; 74177; 80053; 81001; 81025; 83690; 85025; 87086; 96361; 96374; 96375; 99284; J1171; J1885; J7030; Q9967